=== PATIENT | male | born 1950 | race Caucasian/White ===

== ENCOUNTER 2017-02-13 20:14 | Emergency (ER) | payer MEDICARE, BC ==
[~2017-02-13 20:14] MED LIST: LISI-360 PO; LORTA10 PO; NAPR550 PO; PRAV80 PO; SYNT88TA PO
[2017-02-13 20:19] VITALS: BP 125/64; PULSE 78; RESP 20; TEMP 99.1; O2SAT 97
--- NOTE | 2017-02-13 20:34 | PD ---
HPI Chief Complaint: Musculoskeletal Complaint Time Seen by Provider: 20:30 Travel History International Travel<30 days: No Contact w/Intl Traveler<30days: No Traveled to known affect area: No History of Present Illness HPI 66-year-old male here with right elbow pain. He reports he was lifting heavy boxes of tools into the back of a truck when he felt a popping sensation and had pain immediately in his elbow and proximal forearm area. He noticed the area began to swell. He has pain with palpation of the area. He denies paresthesia or weakness of the extremity. Symptom severity is moderate. Alleviated by rest PFSH Past Medical History High Cholesterol: Yes Diminished Hearing: Yes ([place] BOTH EARS) Hypertension: Yes Integumentary: Yes (SKIN CA REMOVED) Triglycerides - High: Yes Past Surgical History Cholecystectomy: Yes Other Surgery: Yes (WISDOM TEETH REMOVED, SKIN CA REMOVED, COLONOSCOPY) Social History Alcohol Use: No Tobacco Use: No Substance Use: No Allergies-Medications (Allergen,Severity, Reaction): Coded Allergies: No Known Allergies (Unverified , 05/23/13) Reported Meds & Prescriptions Reported Meds & Active Scripts Active Reported Zorvolex (Diclofenac) 18 Mg Cap Unknown Dose PO TID Dicyclomine (Dicyclomine HCl) 20 Mg Tab 20 Mg PO QID Levothyroxine (Levothyroxine Sodium) 88 Mcg Tab 88 Mcg PO DAILY Review of Systems Except as stated in HPI: all other systems reviewed are Neg Physical Exam Narrative GENERAL: Alert male in no distress SKIN: Warm and dry. HEAD: Normocephalic. EYES: No scleral icterus. No injection or drainage. CARDIOVASCULAR: Regular rate and rhythm without murmurs, gallops, or rubs. RESPIRATORY: Breath sounds equal bilaterally. No accessory muscle use. GASTROINTESTINAL: Abdomen soft, non-tender, nondistended. MUSCULOSKELETAL: No cyanosis. Attention to the right upper extremity: TTP and swelling noted to the proximal forearm dorsal aspect. Patient is able to pronate and supinate the extremity. He is able to flex and extend the elbow. 2 + brachial, radial pulse. Normal sensation in the hand. Brisk cap refill. Data Data Last Documented VS Vital Signs Date Time Temp Pulse Resp B/P (MAP) Pulse Ox O2 Delivery O2 Flow Rate FiO2 02/13/17 20:19 99.1 78 20 125/64 (84) 97 Orders Orders Elbow, Complete (4 Vws) (02/13/17 ) [facility] Medical Decision Making Medical Screen Exam Complete: Yes Emergency Medical Condition: Yes Differential Diagnosis Tendon injury, ligamentous injury, fracture Narrative Course 66-year-old male with right forearm/elbow pain after lifting heavy tools out of the truck. He reports he felt a popping sensation and had immediate pain and swelling to the proximal forearm. The extremity is neurovascularly intact. He is able to pronate and supinate the extremity he has full extension and flexion of the elbow. X-rays ordered and pending End of shift case was signed off to Dr. Wheeler. Leana Hedrick Feb 13, 2017 20:34
[2017-02-13] MEDS ORDERED: LEVO88TA2 PO (20:35)
[2017-02-13] MEDS ORDERED: DICL1CAP3 PO (20:35)
[2017-02-13] MEDS ORDERED: DICY20TA10 PO (20:35)
--- NOTE | 2017-02-13 20:56 | PD ---
Data Data Last Documented VS Vital Signs Date Time Temp Pulse Resp B/P (MAP) Pulse Ox O2 Delivery O2 Flow Rate FiO2 02/13/17 20:19 99.1 78 20 125/64 (84) 97 Orders Orders Elbow, Complete (4 Vws) (02/13/17 ) Ed Discharge Order (02/13/17 22:00) MDM Supervised Visit with MARIBEL: Yes Narrative Course Patient care assumed from Leana Hedrick at 2100. I was asked to follow-up the patient's elbow imaging. Relatively atraumatic injury to the right elbow, has a little bit of soft tissue swelling about the radial aspect just distal to the elbow joint. Could be a hematoma also could be a lipoma this is fairly soft. Patient is full nontender range of motion of his elbow, no bony tenderness. X- rays were negative. He is stable for discharge, discussed symptomatically management including rest ice compression and elevation. Return to ED criteria follow-up with primary care physician Diagnosis Primary Impression: Elbow pain Patient Instructions: General Instructions, RICE Therapy (GEN) Disposition: 01 DISCHARGE HOME Condition: Stable Gage Wheeler MD Feb 13, 2017 20:56
--- NOTE | 2017-02-13 21:50 | RADRPT ---
EXAM DATE/TIME: 02/13/2017 21:25 [facility] COMPARISON: No previous studies available for comparison. INDICATIONS : Right elbow pain post fall. MEDICAL HISTORY : None. SURGICAL HISTORY : None. ENCOUNTER: Initial ACUITY: 1 day PAIN SCORE: 5/10 LOCATION: Right elbow FINDINGS: No fracture or subluxation of the right elbow. No perceptible joint effusion. There is mild osteoarthritis. Small amount of ossification seen in the region of the common extensor origin. CONCLUSION: Mild degenerative changes. No fracture, subluxation or joint effusion of the right elbow. Robin Morin MD on February 13, 2017 at 21:46 Board Certified Radiologist. This report was verified electronically.
== END 2017-02-13 22:04 | disposition home or self-care (01) ==
LOC: PHEFT 20:14
DX: M25.521 Pain in right elbow (principal)
CPT/HCPCS: 73080; 99283